=== PATIENT | male | born 1965 | race Caucasian/White ===

== ENCOUNTER 2017-02-27 12:20 | Emergency (ER) | payer BC, MEDICAID ==
[~2017-02-27] VITALS: Ht 182.9 cm; Wt 99.8 kg
[2017-02-27 12:20] VITALS: BP 156/99
[2017-02-27] MEDS ORDERED: TDAP [DIPH/PERTUSSIS/TET] 0.5 ML VIAL IM ONE ×2 (13:00→13:12)
[2017-02-27] MEDS ORDERED: LIDOCAINE HCL/PF 1% 30 ML VIAL TP ONE (13:00)
[2017-02-27] MEDS ORDERED: LIDOCAINE HCL/PF 1% 30 ML SDV ONE (13:12)
== END 2017-02-27 14:22 | disposition home or self-care (01) ==
LOC: ER 13:08
DX: S61.211A Laceration without foreign body of left index finger without damage to nail, initial encounter (principal); E11.9 Type 2 diabetes mellitus without complications; I10 Essential (primary) hypertension; Z95.811 Presence of heart assist device; W26.0XXA Contact with knife, initial encounter; Y93.89 Activity, other specified; Y92.89 Other specified places as the place of occurrence of the external cause; Y99.8 Other external cause status
CPT/HCPCS: 12001; 90471; 90715; 99283; A4606; A6402; A6403; J3490 ×2; Z7610

== ENCOUNTER 2019-11-06 14:47 | Emergency (ER) | payer BC ==
[~2019-11-06] VITALS: Ht 182.9 cm; Wt 104.3 kg
--- NOTE | 2019-11-06 14:52 | NUR ---
came in for diffuse abdominal pain w/ nausea and vomiting since saturday, to er bed 9, hooked to monitor, changed to hosp gown, warm blanket provided. patient aoX4 , breathing even and unlabored. awaiting md mays
--- NOTE | 2019-11-06 14:55 | NUR ---
dr johnson at bedside
[2019-11-06] MEDS ORDERED: IV NS 0.9% 1,000 ML BAG IV ONE (15:00)
[2019-11-06] MEDS ORDERED: ONDANSETRON HCL/PF 4 MG/2 ML VIAL IVP ONE (15:00)
[2019-11-06] MEDS ORDERED: PIPERACILLIN /TAZOBACTAM 3.375 G in IV D5W 50 ML IV ONE (15:00)
[2019-11-06] MEDS ORDERED: ONDANSETRON HCL/PF 4 MG/2 ML VIAL ONE (15:14)
[2019-11-06 15:15] LABS: BASOPHILS % (AUTO) 0.7 % (0.0-2.0); HEMATOCRIT 44 % (39-51); LYMPHOCYTES # (AUTO) 2.4 /CMM (0.8-4.8); LYMPHOCYTES % (AUTO) 36.2 % (20.0-44.0); MEAN CORPUSCULAR HGB CONC 34 g/dl (31.0-36.0); MEAN CORPUSCULAR VOLUME 91 fL (80-96); MONOCYTES # (AUTO) 0.8 /CMM (0.1-1.30); MONOCYTES % (AUTO) 11.8 % (2.0-12.0); NEUTROPHILS # (AUTO) 2.6 /CMM (1.8-8.9); NEUTROPHILS % (AUTO) 38.3 % (43.0-81.0); PLATELET COUNT (AUTO) 183 /CMM (150-450); RED BLOOD CELL COUNT(AUTO) 4.85 MIL/uL (4.5-6.0); WHITE BLOOD COUNT (AUTO) 6.7 K/uL (4.3-11.0)
[2019-11-06] MEDS ORDERED: PIPERACILLIN /TAZOBACTAM 3.375 G VIAL IV ONE (15:21)
[2019-11-06 15:22] LABS: CALCIUM, SERUM 8.3 mg/dL (8.5-10.1); POTASSIUM 4.2 mmol/L (3.5-5.1)
[2019-11-06 15:28] LABS: BILIRUBIN,DIRECT 0.1 mg/dL (0.0-0.2); BILIRUBIN,TOTAL 0.4 mg/dL (0.2-1.0); TOTAL PROTEIN, SERUM 7.5 g/dL (6.4-8.2)
--- NOTE | 2019-11-06 15:29 | NUR ---
wheeled out via [facility] for ct scan
[2019-11-06 16:39] VITALS: BP 142/89
--- NOTE | 2019-11-06 16:39 | NUR ---
IV removed. Catheter intact and site benign. Pressure and 4x4 applied to site. No bleeding noted.Patient discharged to home in stable condition. Written and verbal after care instructions given. Patient verbalizes understanding of instruction.
== END 2019-11-06 16:39 | disposition home or self-care (01) ==
LOC: ER 14:48
DX: R19.7 Diarrhea, unspecified (principal); R11.0 Nausea; R10.84 Generalized abdominal pain; E11.9 Type 2 diabetes mellitus without complications; I10 Essential (primary) hypertension; Z95.5 Presence of coronary angioplasty implant and graft
CPT/HCPCS: 36415; 74176; 80048; 80076; 85025; 96365; 96375; 99284; J2405; J2543; J7030; J7060

== ENCOUNTER 2021-05-24 12:11 | Emergency (ER) | payer BC ==
[~2021-05-24] VITALS: Ht 182.9 cm; Wt 99.8 kg
[2021-05-24 12:24] VITALS: BP 170/103
--- NOTE | 2021-05-24 12:31 | NUR ---
BIBS FOR C/O COUGH X 6 DAYS. IN ROOM AIR AND DENIES SOB. RESPIRATIONO REGULAR AND UNLABORED.
--- NOTE | 2021-05-24 13:18 | NUR ---
COVID SWABS DONE AND SENT TO THE LAB
[2021-05-24] MEDS ORDERED: AZIT250T13 PO (14:23)
== END 2021-05-24 14:27 | disposition home or self-care (01) ==
LOC: ER 12:14
DX: J20.9 Acute bronchitis, unspecified (principal); Z20.822 Contact with and (suspected) exposure to COVID-19; I10 Essential (primary) hypertension; Z95.5 Presence of coronary angioplasty implant and graft; E11.9 Type 2 diabetes mellitus without complications
CPT/HCPCS: 71045; 87426; 99284; U0003; C9803

== ENCOUNTER 2024-02-15 08:43 | Emergency (ER) | payer BC ==
[~2024-02-15] VITALS: Ht 182.9 cm; Wt 104.3 kg
[~2024-02-15 08:43] MED LIST: AZIT250T13 PO
[2024-02-15 08:53] VITALS: TEMP 98.6
[2024-02-15] MEDS ORDERED: MORPHINE SULFATE INJ 4 MG/ML DISP.SYRIN ONE (09:15)
[2024-02-15] MEDS: MORPHINE SULFATE INJ 2 MG/ML DISP.SYRIN IV ONE (09:15)
[2024-02-15] MEDS ORDERED: ONDANSETRON HCL/PF 4 MG/2 ML VIAL ONE (09:15)
[2024-02-15] MEDS: ONDANSETRON HCL/PF 4 MG/2 ML VIAL IVP ONE (09:15)
[2024-02-15] MEDS ORDERED: LOSA25TA27 PO (09:43)
[2024-02-15] MEDS ORDERED: SITA100T PO (09:43)
[2024-02-15] MEDS ORDERED: IBUP-1957 PO (09:43)
[2024-02-15] MEDS ORDERED: ASPI-1169 PO (09:43)
[2024-02-15] MEDS ORDERED: GLIM4TAB37 PO (09:43)
[2024-02-15] MEDS ORDERED: ATOR40TA PO (09:43)
[2024-02-15] MEDS ORDERED: METF-442 PO (09:43)
[2024-02-15] MEDS ORDERED: CARI350T PO (09:43)
[2024-02-15 09:47] LABS: BASOPHILS # (AUTO) 0.1 K/uL (0.0-0.2); BASOPHILS % (AUTO) 0.7 % (0.0-2.0); EOSINOPHILS # (AUTO) 0.6 K/uL (0.0-0.7); EOSINOPHILS % (AUTO) 5.6 % (0.0-6.0); HEMATOCRIT 38 % (39-51); HEMOGLOBIN 12.8 g/dL (13.5-17.5); LYMPHOCYTES # (AUTO) 3.3 K/uL (0.8-4.8); LYMPHOCYTES % (AUTO) 32.6 % (20.0-44.0); MEAN CORPUSCULAR HEMOGLOBIN 31 PG (26.0-33.0); MEAN CORPUSCULAR HGB CONC 34 g/dl (31.0-36.0); MEAN CORPUSCULAR VOLUME 91 fL (80-96); MONOCYTES # (AUTO) 0.7 K/uL (0.1-1.30); NEUTROPHILS # (AUTO) 5.5 K/uL (1.8-8.9); NEUTROPHILS % (AUTO) 54.1 % (43.0-81.0); PLATELET COUNT (AUTO) 211 K/uL (150-450); WHITE BLOOD COUNT (AUTO) 10.1 K/uL (4.3-11.0)
[2024-02-15 10:10] LABS: CARBON DIOXIDE 23 mmol/L (21-32); CHLORIDE 105 mmol/L (98-107); CREATININE 1.2 mg/dL (0.6-1.3); GLUCOSE 221 mg/dL (74-106); POTASSIUM 4.4 mmol/L (3.5-5.1); SODIUM SERUM 139 mmol/L (136-145); UREA NITROGEN, BLOOD 27 mg/dL (7-18)
[2024-02-15] MEDS ORDERED: IOHEXOL-350 100 ML VIAL IV ONE (10:22)
[2024-02-15] MEDS ORDERED: IV NS 0.9% 250 ML IV ONE (10:22)
[2024-02-15 11:32] VITALS: O2SAT 99
[2024-02-15] MEDS ORDERED: LOSARTAN POTASSIUM 25 MG TABLET ONE (11:50)
[2024-02-15] MEDS ORDERED: ATORVASTATIN 40 MG TABLET ONE (11:50)
[2024-02-15] MEDS ORDERED: ASPIRIN EC 81 MG TABLET.DR PO ONE (11:50)
[2024-02-15] MEDS: GLIMEPIRIDE 4 MG TABLET PO SCH (11:51)
[2024-02-15] MEDS: ASPIRIN 81 MG TAB.CHEW PO SCH (11:51)
[2024-02-15] MEDS: LOSARTAN POTASSIUM 25 MG TABLET PO SCH (11:51)
[2024-02-15] MEDS: ATORVASTATIN 40 MG TABLET PO SCH (11:51)
[2024-02-15 11:55] VITALS: BP 160/79
[2024-02-15] MEDS ORDERED: METOPROLOL TARTRATE 50 MG TABLET PO SCH (12:00)
[2024-02-15] MEDS ORDERED: METFORMIN 500 MG TABLET PO SCH (17:00)
[2024-02-16] MEDS ORDERED: LINAGLIPTIN 5 MG TABLET PO SCH (09:00)
== END 2024-02-15 14:00 | disposition short-term general hospital (02) ==
LOC: ER 08:53
DX: R07.9 Chest pain, unspecified (principal); I10 Essential (primary) hypertension; E11.9 Type 2 diabetes mellitus without complications; Z60.2 Problems related to living alone; Z79.899 Other long term (current) drug therapy
CPT/HCPCS: 99285; 93307; 96374; 71045; 96375; 93005 ×3; 85025; 80048; 36415; 84484 ×2; J2270; J2405; J7030; J7050; Q9967

== ENCOUNTER 2025-04-09 17:08 | Emergency (ER) | payer BC ==
[~2025-04-09] VITALS: Ht 182.9 cm; Wt 102.1 kg
[~2025-04-09 17:08] MED LIST changes: +ASPI-1169 PO; +ATOR40TA PO; -AZIT250T13 PO; +CARI350T PO; +GLIM4TAB37 PO; +IBUP-1957 PO; +LOSA25TA27 PO; +METF-442 PO; +SITA100T PO
[2025-04-09 17:29] VITALS: BP 153/95; TEMP 98.5
[2025-04-09] MEDS ORDERED: ACYC-108 PO (17:57)
[2025-04-09 18:08] VITALS: O2SAT 97
== END 2025-04-09 18:24 | disposition home or self-care (01) ==
LOC: ER 17:17
DX: B02.9 Zoster without complications (principal); M25.561 Pain in right knee; R20.0 Anesthesia of skin; E11.9 Type 2 diabetes mellitus without complications; I10 Essential (primary) hypertension; Z79.82 Long term (current) use of aspirin; Z79.84 Long term (current) use of oral hypoglycemic drugs; Z79.899 Other long term (current) drug therapy; Z86.79 Personal history of other diseases of the circulatory system; Z60.2 Problems related to living alone
CPT/HCPCS: 99283; J7030